=== PATIENT | female | born 1990 | race Caucasian/White ===

== ENCOUNTER 2022-03-27 20:08 | Emergency (ER) | payer OTHER, SELFPAY ==
--- NOTE | ~2022-03-27 | XR_ITS ---
XR wrist RT min 3V, XR hand RT min 3V 03/27/2022 21:29 INDICATION: Right wrist and hand pain PROCEDURE: 4 views right wrist and 4 he views right hand COMPARISON: No prior studies for comparison. FINDINGS: Fracture, dislocation or subluxation is not identified. The soft tissues appear within norm al limits. No foreign bodies are identified. IMPRESSION: 1: NO ACUTE BONE OR JOINT ABNORMALITY IDENTIFIED. Reviewed, dictated and finalized at location A. IMPRESSION: 1: NO ACUTE BONE OR JOINT ABNORMALITY IDENTIFIED.
[2022-03-27 20:19] VITALS: BP 166/94; PULSE 90; RESP 18; TEMP 36.7; O2SAT 98
--- NOTE | 2022-03-27 22:22 | ED.UPPEXIN ---
HPI - Extremity Injury (Upper) General Chief Complaint: Extremity Injury, Upper Stated Complaint: fall with hand injury Time Seen by Provider: 03/27/22 21:28 Source: patient Mode of arrival: ambulatory Limitations: no limitations History of Present Illness HPI narrative: This is a 31-year-old female that presents to the emergency department for laceration to the right hand and wrist sustained just prior to arrival. Reports she was cleaning up her boyfriend's barn and tripped and fell. Caught her self with her right hand. Is unsure what she cut her fingers and wrist on. She is up-to-date on tetanus. Denies decreased range of motion or numbness. Related Data Allergies Allergy/AdvReac Type Severity Reaction Status Date / Time No Known Allergies Allergy Verified 03/27/22 21:40 Review of Systems Review of Systems: CONSTITUTIONAL: Denies fever SKIN: Reports laceration NEUROLOGIC: Denies numbness All systems reviewed & are unremarkable except as noted in HPI and below PMFSH Past Medical History Medical History (Updated 03/27/22 @ 23:01 by Mery Tom PA-C) No active medical problems Social History Social History (Updated 03/27/22 @ 22:24 by Mery Tom PA-C) Substance use: never Exam Narrative: GENERAL: Well-appearing, well-nourished, and in no acute distress. HEAD: Normocephalic, atraumatic. EYES: EOMI. EXTREMITIES: Normal range of motion. No edema. Several superficial, small abrasions noted to the fingers on the right hand. Right wrist with 4 cm linear laceration into subcutaneous tissue SKIN: Warm, dry, no rash. NEURO: No focal deficits. Alert and oriented x3. PSYCH: Normal mood and affect Course Vital Signs Vital signs: Vital Signs Temperature 98.1 F 03/27/22 20:19 Pulse Rate 90 03/27/22 20:19 Respiratory Rate 18 03/27/22 20:19 Blood Pressure 166/94 H 03/27/22 20:19 Pulse Oximetry 98 03/27/22 20:19 Oxygen Delivery Room Air 03/27/22 20:19 Temperature 98.1 F 03/27/22 20:19 Pulse Rate 90 03/27/22 20:19 Respiratory Rate 18 03/27/22 20:19 Blood Pressure 166/94 H 03/27/22 20:19 Pulse Oximetry 98 03/27/22 20:19 Oxygen Delivery Room Air 03/27/22 20:19 Procedures Laceration Laceration 1: Date: 03/27/22 Time: 22:56 Site: upper extremity Side (If applicable): right Size (cm): 4 Description: linear Depth: simple, single layer Local Anesthetic: lidocaine 1% and with epi Amount of anesthesia used (mL): 3 Pre-repair: wound explored and irrigated ====== Skin Level ====== Skin layer closed with: nylon Size (cm): 4-0 Number of sutures: 5 Technique: simple, interrupted ====== Subcutaneous Layer ====== ====== Muscle Layer ====== ====== Tendon Layer ====== Laceration 2: Date: 03/27/22 Time: 22:57 Site: upper extremity Side (If applicable): right Size (cm): 1 Description: linear Depth: simple, single layer Local Anesthetic: lidocaine 1% and with epi Amount of anesthesia used (mL): 1 Pre-repair: irrigated ====== Skin Level ====== Skin layer closed with: nylon Size (cm): 4-0 Number of sutures: 1 Technique: simple, interrupted ====== Subcutaneous Layer ====== ====== Muscle Layer ====== ====== Tendon Layer ====== MDM - Extremity Injury (Upper) [facility] Narrative Medical decision making narrative: Patient presents the emergency for a laceration sustained to the right wrist after a ground-level fall. Patient is neurovascularly intact. Up-to-date on tetanus. Her wounds were irrigated and closed with sutures. Right hand and wrist x-rays are without acute osseous abnormalities or evidence of foreign body. She was educated on wound care. She is to follow-up with primary care doctor. She was given warnings to return to the ER Imaging [facility]
[2022-03-27] MEDS: LIDO 1%/EPINEPHRINE 1:100,000 20 ML VIAL INFILTRATE (23:06)
[2022-03-27] MEDS: Please add drug allergy info to patient profile. 1 EACH XX (23:06)
== END 2022-03-27 23:23 | disposition home or self-care (01) ==
PROVIDERS: Emergency Provider Emergency Medicine
DX: S61.511A Laceration without foreign body of right wrist, initial encounter (principal); W01.0XXA Fall on same level from slipping, tripping and stumbling without subsequent striking against object, initial encounter; Y92.71 Barn as the place of occurrence of the external cause
CPT/HCPCS: 12002; 73110; 73130; 99283